=== PATIENT | male | born 1945 | race Caucasian/White ===

== ENCOUNTER 2016-07-31 10:09 | Inpatient (IN) | payer MEDICARE, OTHER ==
[2016-07-21 20:05] LABS: WBC (NOT ORDERED) (RFLEX) 0 (0-5)
[2016-07-21 20:15] LABS: BASOPHILS 0.3 %; BASOPHILS ABSOLUTE 0.02 10/3/uL (0.0-0.16); EOSINOPHILS ABSOLUTE 0.07 10/3/uL (0.0-0.53); HEMATOCRIT 43.5 % (40.0-51.0); HEMOGLOBIN 14.4 g/dL (13.6-17.8); IMMATURE GRANULOCYTES 0.3 %; IMMATURE GRANULOCYTES ABSOLUTE 0.02 10/3/uL (0.0-0.11); LYMPHOCYTES 22.2 %; LYMPHOCYTES ABSOLUTE 1.54 10/3/uL (0.67-4.30); MEAN CORPUS HGB CONC 33.1 g/dL (32.0-36.0); MEAN CORPUSCULAR HEMOGLOB 28.3 pg (26.0-34.0); MEAN CORPUSCULAR VOLUME 85.6 fL (80-100); MEAN PLATELET VOLUME 10.6 fL (9.2-13.0); MONOCYTES 7.9 %; MONOCYTES ABSOLUTE 0.55 10/3/uL (0.21-1.20); NEUTROPHILS 68.3 %; NEUTROPHILS ABSOLUTE 4.75 10/3/uL (2.02-8.40); PLATELET COUNT 186 10/3/uL (150-400); RBC DISTRIBUTION WIDTH 12.9 % (12.0-16.0); RED CELL COUNT 5.08 10/6/uL (4.7-6.1)
[2016-07-21 20:21] LABS: ASCORBIC ACID (UR NOT ORDER) NEG (NEG); BILIRUBIN, URINE NEGATIVE (NEG); KETONE, URINE TRACE MG/DL (NEG); LEUKOCYTE ESTERASE(NOT OR NEG (NEG)
[2016-07-21 20:25] LABS: MANUAL DIFF NO %
[2016-07-21 20:27] LABS: ALBUMIN 4.2 G/DL (3.5-5.0); ALKALINE PHOSPHATASE 102 U/L (45-117); BUN (BLOOD UREA NITROGEN) 17 MG/DL (6-23); CALCIUM, SERUM 8.9 MG/DL (8.5-10.4); CHLORIDE, SERUM 106 MMOL/L (96-112); CO2 (CARBON DIOXIDE) 30 MMOL/L (24-34); CREATININE 0.98 MG/DL (0.70-1.30); GFR AFRICAN AMERICAN 91 ML/MIN (>=60); GFR NON AFRICAN AMERICAN 78 ML/MIN (>=60); GLOBULIN 2.1 G/DL (2.5-4.1); GLUCOSE, SERUM 98 MG/DL (60-99); POTASSIUM, SERUM 4.5 MMOL/L (3.5-5.3); SGOT(AST) 28 U/L (5-40); SGPT(ALT) 32 U/L (5-65); SODIUM, SERUM 142 MMOL/L (135-148); TOTAL PROTEIN 6.3 G/DL (6.0-8.5)
--- NOTE | ~2016-07-31 | OP ---
Record Of Operation [facility] [address] [place]. [address] NAME: KEVIN ESQUEDA : 47 STATUS : ADM IN PAT#: [id number] AGE: 70 ADM/REG DATE : 07/31/16 MR#: [id number] REPORT SERV DATE: 07/31/16 DICTATED BY: AUSTIN FOURNIER JR. DATE: 07/31/16 REPORT STATUS : Draft TRANSCRIBED BY: MODAlexia DATE: 07/31/16 DATE OF PROCEDURE: ADDENDUM: ESTIMATED BLOOD LOSS: 600 mL. SPECIMENS: A partial nephrectomy. Margins clear. DRAINS: As above. INDICATION: Mr. Esqueda is a 70-year-old gentleman, who I have been following with a cystic renal mass on the right side. Over the past several months, it has increased in size significantly and also has become a Bosniak III cyst with an enhancing area in the central portion. It is a multiloculated cyst as well. 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 He had an NG tube for almost 60 days at a prior admission in [place], [place] and there was a great concern that he would have difficulties with this operation having a lot of adhesions. Based on his multiple prior operations, I felt that he would be at risk for enterotomies, however, he also had a large epigastric hernia that was bothering him and I had him consult with Dr. Dexter about repairing the hernia after the partial nephrectomy had been completed. We agreed that this was a fairly large procedure and adding a hernia operation may be too much and depending on the operative time and the way the patient was doing, it may not be the best idea, but that decision was to be made at the time of surgery. I also wanted to have Dr. Dexter on board in case the adhesions were too difficult or if there were some issues with enterotomies. He could help with closure on those. PROCEDURE IN DETAIL: After the patient was identified and proper informed consent was obtained, he was taken to the operating room. General anesthesia was performed without complication using an endotracheal tube. He also had an NG-tube placed. He was prepped and draped in a normal sterile fashion in the modified thoracoabdominal position. He had a previous subcostal incision, not a full one but approximately 4-inch long subcostal incision in the midline. This was directly overlying the rib on the bottom of the rib cage. This is not the best location for an incision, however, I did not want to make a second incision parallel to this only a few centimeters away so well I simply made my incision overlying this previous incision and then once down to the area of the fascia, I made sure that I incised the fascia approximately 2 cm from the lower edge of the costophrenic angle. I then started laterally and entered the retroperitoneum without difficulties and then tried to reflect the peritoneum off the anterior surface of the abdominal wall and enlarged my incision, however, this proved to be quite difficult as he had very thick and scarred down adhesions. This was quite difficult and even in areas where I resected abdominal wall, I was still making enterotomies as I dissected the small intestine off the anterior abdominal wall in the areas of his prior incision. These enterotomies were noted. I placed sutures in them to sue them. There were approximately five enterotomies and one short segment of bowel that was adherent to the previous subcostal incision and there were two small enterotomies in the area of the intestine that was mobilized from the umbilical area. It Record Of Operation [facility] [address] [facility] [place]. [address] NAME: KEVIN ESQUEDA : 46 STATUS : ADM IN PAT#: [id number] AGE: 70 ADM/REG DATE : 07/31/16 MR#: [id number] REPORT SERV DATE: 07/31/16 DICTATED BY: AUSTIN FOURNIER JR. DATE: 07/31/16 REPORT STATUS : Draft TRANSCRIBED BY: SIMI DATE: 07/31/16 was necessary to perform this adhesiolysis so that I could get the Omni retractor in and exposed the kidney appropriately. There was very thick adhesions along the lower border of the liver as well. This made it quite difficult to expose the hilum of the kidney. I was able to take down enough adhesions to get a retractor in under the lateral portion of the liver and exposed the lateral kidney in the location of his cystic mass. Once I had placed the Omni retractor and noted the areas of enterotomy, I then began mobilizing the lateral portion of the kidney and simply flipped it up over onto its anterior surface to expose the lateral border of the kidney and the cystic mass. Using ultrasound, I marked the borders of the cystic mass and then using compression of the hilum between my fingers intermittently, I resected the mass itself. Initially there was a small segment of the cystic mass that was left on the kidney, I sent the mass for frozen section and was found to be renal cell carcinoma. I therefore took a second margin removing the remaining cyst wall and some renal parenchyma along with it. This margin was negative. Once I had completely resected all the tumor, I then closed these defects of the kidney using a 3-0 Vicryl suture in a running fashion through the central portion of the defect to control the vast majority of the bleeding. I then used pledgeted 2-0 Vicryl sutures in the capsule of the kidney in a vertical fashion to close the kidney capsule and then used FloSeal and Surgicel and placed the kidney back into its natural position. Dr. Dexter, at that point, came into the room. I assisted him in resecting the small bowel that had the five enterotomies along the subcostal incision and reanastomosing that. Please see his dictation for details of those portions of the operation. He then also closed the small enterotomies in the area of the umbilicus. Once we were satisfied that all enterotomies had been closed or dealt with, I copiously irrigated the abdomen with sterile saline removing the saline with suction and then placing a 15-Khmer Con drain through a separate stab incision below my original incision. I then closed the wound using two layers of 0 looped PDS suture to reapproximate the muscle layers of the anterior abdominal wall. I then irrigated the wound copiously then closing the skin using a 3-0 Vicryl in the Bryce's fascia and a 4-0 Monocryl on the skin. An NG tube will be left for several days. Dr. Dexter will help me manage his bowel function over the next few days and will wait for the final pathology results on the cystic renal mass. ERIKA/MODL Austin Fournier Jr., M.D. / [id number] CC: Claire Rios Jr. M.D.
--- NOTE | ~2016-07-31 | OP ---
Record Of Operation [facility] [address] [place]. [address] NAME: KEVIN ESQUEDA : 47 STATUS : ADM IN PAT#: [id number] AGE: 70 ADM/REG DATE : 07/31/16 MR#: [id number] REPORT SERV DATE: 08/01/16 DICTATED BY: TREVOR ROBLERO III DATE: 08/01/16 REPORT STATUS : Draft TRANSCRIBED BY: MODL DATE: 08/01/16 DATE OF PROCEDURE: 07/31/2016 PREOPERATIVE DIAGNOSIS: Right renal mass with history of multiple abdominal operations in the past associated with enterocutaneous fistulas and incisional hernia and history of multiple small bowel obstructions in the past. POSTOPERATIVE DIAGNOSIS: Right renal mass with history of multiple abdominal operations in the past associated with enterocutaneous fistulas and incisional hernia and history of multiple small bowel obstructions in the past, severe intraabdominal adhesions associated with right renal neoplasm and previous multiple enterocutaneous fistulas requiring small bowel resection and repair of enterotomies. PROCEDURE: Small bowel resection with primary anastomosis and repair of enterotomies. SURGEON: Trevor Roblero M.D. ANESTHESIA: General with intubation. COMPLICATIONS: None. ESTIMATED BLOOD LOSS: 50 mL. SPECIMEN: Segment of small bowel. DRAINS: Mihai-Shine in abdominal cavity. LAP AND SPONGE COUNT: Correct x3 (I was the second surgeon in this procedure with Dr. Bolivar Fournier, who dictated separately the partial nephrectomy performed). BRIEF HISTORY: This 70-year-old male was recently diagnosed with a right renal cell mass. The patient has a history of two small bowel obstructions in the past requiring operations. He had a prolonged hospitalization at [facility] related to his previous surgery, including prolonged intensive care unit stay, multiple enterocutaneous fistulas, and many weeks in the hospital. 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 He had a midline incisional hernia related to the junction between his right subcostal incision and midline incision. We planned to repair this if necessary for entering the abdomen for the partial nephrectomy to be performed by Dr. Fournier. Nevertheless, it was realized that the patient had a hostile abdomen and the entrance into the abdominal cavity would be extremely difficult likely involving enterotomies and possible need for bowel resection. We planned to repair the hernia if this was indicated but primarily we were concerned about exposure of the right kidney for the necessary resection. Regarding the surgery, laparotomy with partial nephrectomy, possible repair of incisional hernia, repair of enterotomy or small bowel resection is indicated, the risks, benefits, alternatives including but not limited to the risk for bleeding, infection, enterotomy, injury to the abdominal structure, postop small bowel obstruction, ileus, incisional hernia, dehiscence, anastomotic leak requiring Record Of Operation [address] [address] NAME: KEVIN ESQUEDA : 47 STATUS : ADM IN [facility]#: [id number] AGE: 70 ADM/REG DATE : 07/31/16 MR#: [id number] REPORT SERV DATE: 08/01/16 DICTATED BY: TREVOR ROBLERO III DATE: 08/01/16 REPORT STATUS : Draft TRANSCRIBED BY: SIMI DATE: 08/01/16 reoperation or resulting in peritonitis, sepsis, and , and unforeseen complications including deep venous thrombosis, pulmonary embolus, myocardial infarction, stroke, pneumonia, and were fully and completely explained to the patient's family prior to surgery. The fact that this was a major operation with risk for major morbidity and mortality was explained. The expected length of recovery was explained. Based on his previous history of dense abdominal adhesions and bowel obstruction, the possibility of prolonged ileus or recurrent small bowel obstruction after this procedure was explained. The patient had questions, which were answered. He clearly understood the risks and agreed to surgery as planned. DESCRIPTION OF PROCEDURE: The patient was appropriately identified in the preoperative area, and the risks of surgery again discussed with the patient and his family. He was taken to the operating room and placed in supine position on the operating room table. General anesthesia was administered. He was intubated without difficulty. Dr. Fournier had dictated the initial portion of the procedure. On my entering the procedure, the patient was under general anesthesia and stable. He had a right subcostal incision. The patient had evidence for dense intraabdominal adhesions. There were six separate enterotomies identified, one in the right upper quadrant along a contiguous loop of small bowel. These were fairly large, adjacent to one another, and were too large to allow for primary closure. It was clear that the resection of the involved portion of small bowel would be required. The three other enterotomies were along the separate segment of small bowel, in the mid to the left lower quadrant of the abdomen. These were also contiguous with one another but was smaller and was felt that these could be repaired primarily. The abdominal cavity was carefully inspected. Hemostasis was assured. There was noted to be dense adhesions between multiple loops of small bowel including those involving the enterotomies. We then performed extensive lysis of adhesions in order to define the small bowel involving the enterotomies in the right upper quadrant. Meticulous dissection was done so as to define the small bowel proximally and distally. These three enterotomies were large, but were again involving contiguous segments of small bowel, perhaps 6-10 cm in length. Extensive lysis of adhesions was required in order to free up this loop of bowel to define it proximally and distally. Once this was done, we selected a point for division of small bowel proximal and distal to the enterotomies. The bowel was divided proximally and distally at these locations with the ANSHUL stapler. The mesentery to the involved portion of the small bowel was then divided between Patsy clamps, cutting and tying with 2-0 silk sutures. This segment of small bowel was removed and sent for permanent pathology. We then performed a [id number]-[id number] anastomosis between the divided proximal and distal small bowel. This was performed by aligning the antimesenteric border of the small bowel proximally and distally with interrupted 3-0 silk sutures. A small opening was then made in the antimesenteric border of the small bowel proximally and distally, and ANSHUL stapler was placed through this and fired. The defect created by the stapler was closed with a TA-60 Record Of Operation [address] [place]. [address] NAME: KEVIN ESQUEDA : 47 STATUS : ADM IN PAT#: [id number] AGE: 70 ADM/REG DATE : 07/31/16 MR#: [id number] REPORT SERV DATE: 08/01/16 DICTATED BY: TREVOR ROBLERO III DATE: 08/01/16 REPORT STATUS : Draft TRANSCRIBED BY: MODL DATE: 08/01/16 stapler. This staple line was oversewn with interrupted 3-0 silk sutures. The "crotch" anastomosis was secured with 3-0 silk sutures. Upon completion of this, the anastomosis was widely patent to palpation, it was not twisted or kinked in anyway and was not under any tension. The mesenteric defect was closed with a running 3-0 silk suture. We then carefully inspected the other three enterotomies in the left lower quadrant. Each of these was closed with interrupted 3-0 silk sutures. This resulted in good closure of each of these defects. Great care was taken to be certain that the lumen of the bowel was not encroached upon or compromised. There was another area of small-bowel serosal thinning. This was reinforced with interrupted 3-0 silk sutures. The entire abdominal cavity was irrigated copiously with saline, and hemostasis was assured. The small bowel was carefully inspected for any other enterotomies and none were identified. The patient had extremely dense adhesions which greatly extended the length of the procedure and the difficulty of the procedure. Hemostasis was assured. A Mihai-Shine drain was brought through a separate stab wound and placed in the abdominal cavity. The abdominal cavity was then closed and this has been dictated separately by Dr. Fournier. The patient tolerated the procedure well. His family was informed of the results of surgery. MANUEL/SIMI Trevor Roblero III, M.D. / [id number] CC: Claire Rios Jr., M.D.
--- NOTE | ~2016-07-31 | OP ---
Record Of Operation [facility] [address] [place] [address] NAME: KEVIN ESQUEDA : 47 STATUS : ADM IN PAT#: [id number] AGE: 70 ADM/REG DATE : 07/31/16 MR#: [id number] REPORT SERV DATE: 07/31/16 DICTATED BY: AUSTIN FOURNIER JR. DATE: 07/31/16 REPORT STATUS : Draft TRANSCRIBED BY: MODL DATE: 07/31/16 DATE OF PROCEDURE: 07/31/2016 PREOPERATIVE DIAGNOSES: Right renal mass and epigastric hernia. POSTOPERATIVE DIAGNOSES: Right renal mass and epigastric hernia. PROCEDURE PERFORMED: Open partial nephrectomy with extensive lysis of adhesions. COMPLICATIONS: Several enterotomies. DRAINS: 15-Armenian Con drain, 16-Armenian Neal catheter, NG tube. CONSULTANTS: Elpidio Dexter M.D. INDICATIONS: DICTATION ENDS HERE ERIKA/SIMI Austin Fournier Jr., M.D. / [id number] CC: Claire Rios Jr., M.D.
--- NOTE | ~2016-07-31 | DS ---
Discharge Summary [facility] [address] [place]. [address] NAME: KEVIN ESQUEDA : 47 STATUS : DIS IN PAT#: [id number] AGE: 70 ADM/REG DATE : 07/31/16 MR#: [id number] REPORT SERV DATE: 08/19/16 DICTATED BY: AUSTIN FOURNIER JR. DATE: 08/18/16 REPORT STATUS : Draft TRANSCRIBED BY: MODAlexia DATE: 08/18/16 Data Collection from hospitalization DISCHARGE DIAGNOSES: 1. Right renal mass and epigastric hernia. 2. Hypertension. 3. Hyperlipidemia. CONSULTATIONS: Junior Dexter M.D. PROCEDURES PERFORMED: 1. Open partial nephrectomy with extensive lysis of adhesions on 07/31/2016. 2. Small bowel resection with primary anastomosis and repair of enterotomies on 07/31/2016. PATHOLOGY: Right kidney partial nephrectomy - renal cell carcinoma with extensive cystic degeneration. See comment. Right kidney additional cyst wall - fragments of cystic portion of renal cell carcinoma, margins free. Small bowel resection - adhesions and perforations. MEDICATIONS: Xanax 0.25 mg twice a day as needed, aspirin 81 mg daily, Lipitor 40 mg every morning, Percocet 7.5/325 one tablet every four hours as needed, and Altace 10 mg every morning. CONDITION AT DISCHARGE: Stable. DISPOSITION: The patient was discharged home on a regular diet with activities as instructed. He would follow up with me two weeks following discharge. He would follow up with his primary care physician as needed. HOSPITAL COURSE: This is a 70-year-old man who followed for a cystic renal mass on the right side over the past several months prior to admission, it had increased in size significantly and also had become a Bosniak III cyst with an enhancing area in the central portion. It is a multiloculated cyst as well. 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 He had an NG tube for almost 60 days at a prior to admission in [place], [place] and there was great concern that he would have difficulties with this operation having a lot of adhesions. Based on his multiple prior operations, it was felt that he would be at risk for enterotomies; however, he also had a large epigastric hernia that was bothering him and we had him consult with Dr. Dexter about repairing the hernia after the partial nephrectomy had been completed. We agreed this was a fairly large procedure and adding a hernia operation may be too much, and depending on the operative time and the way the patient was doing, it may not be the best idea. The decision was to be made at the time of surgery. The patient was admitted to the hospital at this time for further evaluation and treatment. Upon admission, the patient was taken to the operating room where he underwent the above- mentioned procedures by myself and Dr. Junior Dexter. He tolerated these procedures well, and there were no complications. On postop day #1, his pain was controlled. NG tube remained in place. Creatinine level was 1.4. The patient remained Discharge Summary [address] [place]. [address] NAME: KEVIN ESQUEDA : 47 STATUS : DIS IN PAT#: [id number] AGE: 70 ADM/REG DATE : 07/31/16 MR#: [id number] REPORT SERV DATE: 08/19/16 DICTATED BY: AUSTIN FOURNIER JR. DATE: 08/18/16 REPORT STATUS : Draft TRANSCRIBED BY: SIMI DATE: 08/18/16 n.p.o. He was alert and comfortable. He had good pain control. On 08/02/2016, he said he felt much better. He had less pain. He remained afebrile. He remained n.p.o. with the NG tube in place. Electrolytes were okay. Creatinine was 1.12. He remained n.p.o. at this time. On 08/03/2016, he had no new complaints except for some nausea. He remained afebrile. The abdomen was soft. We encouraged him to increase his activity. He was going to be given oral blood pressure medications as his blood pressure was rising off his home medications. The epidural catheter was removed and the tip was intact. On 08/04/2016, he had some abdominal cramping. He was not passing gas or stool per rectum. NG tube output had decreased. Pathology results were reviewed. We encouraged him to ambulate. The following day, the NG tube was removed. He was started on clear liquids. He had no new complaints. He had no nausea or vomiting. He was progressing well. Neal catheter was discontinued. Discharge planning was performed. On 08/06/2016, he felt well. He was tolerating clear liquids. His abdomen was soft. His diet was advanced. IV fluids were discontinued. Discharge instructions were given. Due to his improved and stable condition, he was discharged home with the above-stated instructions. Information collected by: Ronda White I submit the above information as my discharge summary. RADHA/SIMI Austin Fournier Jr., M.D. / [id number] CC: Claire Rios Jr., M.D.
--- NOTE | ~2016-07-31 | PREOPHP ---
PreOp History and Physical [place] [id number] [facility] [place]. [address] NAME: KEVIN ESQUEDA : 47 STATUS : ADM IN PAT#: [id number] AGE: 70 ADM/REG DATE : 07/31/16 MR#: [id number] REPORT SERV DATE: 08/01/16 DICTATED BY: TREVOR ROBLERO III DATE: 07/05/16 REPORT STATUS : Draft TRANSCRIBED BY: MODAlexia DATE: 07/05/16 HISTORY OF PRESENT ILLNESS: This 70-year-old male comes to the operating room for repair of a complicated incisional hernia. The patient has a large incisional hernia of his mid abdomen. This is related to previous multiple abdominal operations, which the patient had elsewhere. This hernia has become larger with time and symptomatic in terms of local pain and discomfort. The patient comes now for open repair of this hernia. This will be done in conjunction with a partial nephrectomy to be performed per Dr. Austin Fournier. The patient's previous surgery involved prolonged hospitalization of two months with multiple enterocutaneous fistulas and wound complications. He has had multiple operations including surgery for bowel obstruction, colostomy, and colostomy closure. This would markedly increase the risk for complications with this procedure, including risk for enterotomy or bowel injury and risk for wound infection or enterocutaneous fistula. It will also make the procedure more difficult technically. These increased risks have been explained to the patient, he understands and wished to proceed with surgery as planned. PAST MEDICAL HISTORY: 1. Hypertension. 2. Hyperlipidemia. ALLERGIES: CODEINE, DEMEROL, AND DILAUDID. MEDICATIONS: Aspirin, ramipril, Xanax, and Lipitor. PAST SURGICAL HISTORY: Includes laparotomy for bowel obstruction, colostomy, and colostomy closure. FAMILY HISTORY: Positive for cancer and heart disease. SOCIAL HISTORY: No history of tobacco or alcohol use. REVIEW OF SYSTEMS: The patient complains of joint pain. His 14-point review of systems is otherwise unremarkable. PHYSICAL EXAMINATION: GENERAL: He is a male, in no acute distress. He is alert and oriented x3. VITAL SIGNS: Blood pressure 152/72, temperature 98.7, and pulse 55. HEENT: Unremarkable. Cranial nerves II through XII are normal. LUNGS: Clear. CARDIAC: Normal. ABDOMEN: Soft and nontender. The patient has a large incisional hernia in the mid upper abdomen. This is at the junction of the intersection between the right subcostal and midline incision. The fascial defect is some 5 cm in size. The hernia is reducible. EXTREMITIES: Normal. PreOp History and Physical [address] [place]. [address] NAME: KEVIN ESQUEDA : 47 STATUS : ADM IN [facility]#: [id number] AGE: 70 ADM/REG DATE : 07/31/16 MR#: [id number] REPORT SERV DATE: 08/01/16 DICTATED BY: TREVOR ROBLERO III DATE: 07/05/16 REPORT STATUS : Draft TRANSCRIBED BY: SIMI DATE: 07/05/16 ASSESSMENT: 1. A 70-year-old male with symptomatic incisional hernia. 2. History of multiple complicated abdominal operations as above. 3. History of right renal abnormality, rule out malignancy. 4. Hypertension. 5. Hyperlipidemia. PLAN: The patient comes to the operating room now for open repair of this incisional hernia. This procedure, the risks, benefits, and alternatives, including but not limited to the risk for bleeding, infection, enterotomy, injury to any abdominal structure, postop small bowel obstruction, ileus, recurrence of the hernia, seroma formation, hematoma formation, infection of mesh or enterocutaneous fistula requiring removal of the mesh, and unforeseen complications including deep venous thrombosis, pulmonary embolus, myocardial infarction, stroke, pneumonia, and , have been fully and completely explained to the patient and family at length prior to surgery. The fact that this is a major operation with risk for major morbidity and mortality has been explained. The fact that he would be increased risk for complications including enterotomy or enterocutaneous fistula and wound complications due to his previous abdominal operations, which were prolonged complicated postoperatively has been explained. The patient's questions have been answered. He understands the risks and agrees to surgery as planned. MANUEL/SIMI Trevor Roblero III, M.D. / [id number]
[~2016-07-31 10:09] MED LIST: ALTACE10 MG PO; ASAB PO; LIPITOR40 PO; X25 PO
[2016-07-31 19:43] LABS: BASOPHILS 0.1 %; BASOPHILS ABSOLUTE 0.01 10/3/uL (0.0-0.16); EOSINOPHILS 0 %; HEMOGLOBIN 11.9 g/dL (13.6-17.8); IMMATURE GRANULOCYTES 0.3 %; IMMATURE GRANULOCYTES ABSOLUTE 0.03 10/3/uL (0.0-0.11); LYMPHOCYTES 4.8 %; LYMPHOCYTES ABSOLUTE 0.54 10/3/uL (0.67-4.30); MEAN CORPUS HGB CONC 34.4 g/dL (32.0-36.0); MEAN CORPUSCULAR HEMOGLOB 29.3 pg (26.0-34.0); MEAN CORPUSCULAR VOLUME 85.2 fL (80-100); MEAN PLATELET VOLUME 9.7 fL (9.2-13.0); MONOCYTES 2.3 %; MONOCYTES ABSOLUTE 0.26 10/3/uL (0.21-1.20); NEUTROPHILS 92.5 %; NEUTROPHILS ABSOLUTE 10.37 10/3/uL (2.02-8.40); PLATELET COUNT 144 10/3/uL (150-400); RBC DISTRIBUTION WIDTH 13.1 % (12.0-16.0)
[2016-07-31 19:45] LABS: HEMATOCRIT 34.6 % (40.0-51.0); MANUAL DIFF NO %; RED CELL COUNT 4.06 10/6/uL (4.7-6.1); WHITE BLOOD CELLS 11.2 10/3/uL (4.5-10.5)
[2016-07-31 19:55] LABS: BUN (BLOOD UREA NITROGEN) 16 MG/DL (6-23); CHLORIDE, SERUM 107 MMOL/L (96-112); POTASSIUM, SERUM 3.8 MMOL/L (3.5-5.3); SODIUM, SERUM 142 MMOL/L (135-148)
[2016-07-31 19:56] LABS: CALCIUM, SERUM 7.9 MG/DL (8.5-10.4); CO2 (CARBON DIOXIDE) 24 MMOL/L (24-34); CREATININE 1.74 MG/DL (0.70-1.30); GFR AFRICAN AMERICAN 45 ML/MIN (>=60); GFR NON AFRICAN AMERICAN 39 ML/MIN (>=60); GLUCOSE, SERUM 144 MG/DL (60-99)
[2016-08-01 04:44] LABS: BUN (BLOOD UREA NITROGEN) 19 MG/DL (6-23); CALCIUM, SERUM 7.8 MG/DL (8.5-10.4); CHLORIDE, SERUM 108 MMOL/L (96-112); CREATININE 1.37 MG/DL (0.70-1.30); GFR AFRICAN AMERICAN 61 ML/MIN (>=60); GFR NON AFRICAN AMERICAN 52 ML/MIN (>=60); SODIUM, SERUM 135 MMOL/L (135-148)
[2016-08-01 04:45] LABS: CO2 (CARBON DIOXIDE) 19 MMOL/L (24-34); GLUCOSE, SERUM 234 MG/DL (60-99); POTASSIUM, SERUM 4.6 MMOL/L (3.5-5.3)
[2016-08-01 08:40] LABS: BASOPHILS 0.1 %; BASOPHILS ABSOLUTE 0.01 10/3/uL (0.0-0.16); EOSINOPHILS 0 %; HEMOGLOBIN 12.8 g/dL (13.6-17.8); IMMATURE GRANULOCYTES 0.3 %; IMMATURE GRANULOCYTES ABSOLUTE 0.06 10/3/uL (0.0-0.11); LYMPHOCYTES 3.3 %; LYMPHOCYTES ABSOLUTE 0.63 10/3/uL (0.67-4.30); MEAN CORPUS HGB CONC 33.7 g/dL (32.0-36.0); MEAN CORPUSCULAR HEMOGLOB 28.7 pg (26.0-34.0); MEAN CORPUSCULAR VOLUME 85.2 fL (80-100); MEAN PLATELET VOLUME 10.3 fL (9.2-13.0); MONOCYTES 8.3 %; MONOCYTES ABSOLUTE 1.59 10/3/uL (0.21-1.20); NEUTROPHILS ABSOLUTE 16.77 10/3/uL (2.02-8.40); PLATELET COUNT 172 10/3/uL (150-400); RBC DISTRIBUTION WIDTH 13.2 % (12.0-16.0); RED CELL COUNT 4.46 10/6/uL (4.7-6.1)
[2016-08-01 08:41] LABS: MANUAL DIFF NO %; WHITE BLOOD CELLS 19.1 10/3/uL (4.5-10.5)
[2016-08-01 09:00] LABS: PLATELET ESTIMATE ADQ (ADEQUATE); RBC MORPHOLOGY NORM (NORMAL)
[2016-08-02 05:54] LABS: BASOPHILS 0.1 %; BASOPHILS ABSOLUTE 0.01 10/3/uL (0.0-0.16); EOSINOPHILS 0 %; HEMOGLOBIN 12.5 g/dL (13.6-17.8); IMMATURE GRANULOCYTES 0.2 %; IMMATURE GRANULOCYTES ABSOLUTE 0.04 10/3/uL (0.0-0.11); LYMPHOCYTES 6.1 %; MANUAL DIFF NO %; MEAN CORPUS HGB CONC 33.8 g/dL (32.0-36.0); MEAN CORPUSCULAR HEMOGLOB 29.4 pg (26.0-34.0); MEAN CORPUSCULAR VOLUME 87.1 fL (80-100); MONOCYTES 8.5 %; MONOCYTES ABSOLUTE 1.41 10/3/uL (0.21-1.20); NEUTROPHILS 85.1 %; NEUTROPHILS ABSOLUTE 14.04 10/3/uL (2.02-8.40); PLATELET COUNT 172 10/3/uL (150-400); RBC DISTRIBUTION WIDTH 13.2 % (12.0-16.0); RED CELL COUNT 4.25 10/6/uL (4.7-6.1); WHITE BLOOD CELLS 16.5 10/3/uL (4.5-10.5)
[2016-08-02 06:07] LABS: CALCIUM, SERUM 8.7 MG/DL (8.5-10.4); CHLORIDE, SERUM 102 MMOL/L (96-112); CREATININE 1.12 MG/DL (0.70-1.30); GFR AFRICAN AMERICAN 77 ML/MIN (>=60); GFR NON AFRICAN AMERICAN 67 ML/MIN (>=60); POTASSIUM, SERUM 4.3 MMOL/L (3.5-5.3); SODIUM, SERUM 135 MMOL/L (135-148)
[2016-08-02 06:09] LABS: BUN (BLOOD UREA NITROGEN) 14 MG/DL (6-23); CO2 (CARBON DIOXIDE) 26 MMOL/L (24-34); GLUCOSE, SERUM 154 MG/DL (60-99)
[2016-08-03 06:43] LABS: BASOPHILS 0 %; EOSINOPHILS 0.1 %; EOSINOPHILS ABSOLUTE 0.01 10/3/uL (0.0-0.53); HEMATOCRIT 34.7 % (40.0-51.0); HEMOGLOBIN 11.7 g/dL (13.6-17.8); IMMATURE GRANULOCYTES 0.3 %; IMMATURE GRANULOCYTES ABSOLUTE 0.04 10/3/uL (0.0-0.11); LYMPHOCYTES 4.9 %; LYMPHOCYTES ABSOLUTE 0.59 10/3/uL (0.67-4.30); MEAN CORPUS HGB CONC 33.7 g/dL (32.0-36.0); MEAN CORPUSCULAR HEMOGLOB 29.1 pg (26.0-34.0); MEAN CORPUSCULAR VOLUME 86.3 fL (80-100); MEAN PLATELET VOLUME 9.7 fL (9.2-13.0); MONOCYTES 9.9 %; MONOCYTES ABSOLUTE 1.19 10/3/uL (0.21-1.20); NEUTROPHILS 84.8 %; NEUTROPHILS ABSOLUTE 10.25 10/3/uL (2.02-8.40); PLATELET COUNT 147 10/3/uL (150-400); RED CELL COUNT 4.02 10/6/uL (4.7-6.1); WHITE BLOOD CELLS 12.1 10/3/uL (4.5-10.5)
[2016-08-03 06:44] LABS: MANUAL DIFF NO %
[2016-08-03 07:03] LABS: BUN (BLOOD UREA NITROGEN) 11 MG/DL (6-23); CALCIUM, SERUM 8.5 MG/DL (8.5-10.4); CHLORIDE, SERUM 101 MMOL/L (96-112); CREATININE 0.99 MG/DL (0.70-1.30); GFR AFRICAN AMERICAN 90 ML/MIN (>=60); GFR NON AFRICAN AMERICAN 77 ML/MIN (>=60); GLUCOSE, SERUM 161 MG/DL (60-99); POTASSIUM, SERUM 4.2 MMOL/L (3.5-5.3); SODIUM, SERUM 136 MMOL/L (135-148)
[2016-08-03 07:04] LABS: CO2 (CARBON DIOXIDE) 31 MMOL/L (24-34)
[2016-08-05 06:37] LABS: BASOPHILS 0.1 %; BASOPHILS ABSOLUTE 0.01 10/3/uL (0.0-0.16); EOSINOPHILS ABSOLUTE 0.07 10/3/uL (0.0-0.53); HEMATOCRIT 31.5 % (40.0-51.0); HEMOGLOBIN 10.8 g/dL (13.6-17.8); IMMATURE GRANULOCYTES 0.3 %; IMMATURE GRANULOCYTES ABSOLUTE 0.02 10/3/uL (0.0-0.11); LYMPHOCYTES 10.3 %; LYMPHOCYTES ABSOLUTE 0.69 10/3/uL (0.67-4.30); MEAN CORPUS HGB CONC 34.3 g/dL (32.0-36.0); MEAN CORPUSCULAR HEMOGLOB 28.9 pg (26.0-34.0); MEAN CORPUSCULAR VOLUME 84.2 fL (80-100); MEAN PLATELET VOLUME 9.7 fL (9.2-13.0); MONOCYTES 10.7 %; MONOCYTES ABSOLUTE 0.72 10/3/uL (0.21-1.20); NEUTROPHILS 77.6 %; NEUTROPHILS ABSOLUTE 5.19 10/3/uL (2.02-8.40); PLATELET COUNT 165 10/3/uL (150-400); RBC DISTRIBUTION WIDTH 12.9 % (12.0-16.0); RED CELL COUNT 3.74 10/6/uL (4.7-6.1)
[2016-08-05 06:44] LABS: MANUAL DIFF NO %; WHITE BLOOD CELLS 6.7 10/3/uL (4.5-10.5)
[2016-08-05 06:47] LABS: BUN (BLOOD UREA NITROGEN) 12 MG/DL (6-23); CALCIUM, SERUM 8.1 MG/DL (8.5-10.4); CHLORIDE, SERUM 106 MMOL/L (96-112); CO2 (CARBON DIOXIDE) 23 MMOL/L (24-34); CREATININE 0.77 MG/DL (0.70-1.30); GFR AFRICAN AMERICAN 107 ML/MIN (>=60); GFR NON AFRICAN AMERICAN 93 ML/MIN (>=60); GLUCOSE, SERUM 145 MG/DL (60-99); POTASSIUM, SERUM 4.4 MMOL/L (3.5-5.3); SODIUM, SERUM 138 MMOL/L (135-148)
[2016-08-06] MEDS ORDERED: PERCOCET 7.5/321 TAB PO (09:57)
== END 2016-08-06 12:53 | disposition home or self-care (01) | DRG 657 ==
LOC: SDC/OF 10:09 → PACU 19:06 → MIC 20:25 → 4SO 08-01 15:00
PROVIDERS: Surgery; Urology
PROC: 0DT80ZZ Resection of Small Intestine, Open Approach (ICD-10-PCS; principal; 2016-07-31 13:00)
PROC: 0DQ80ZZ Repair Small Intestine, Open Approach (ICD-10-PCS; 2016-07-31 13:00)
PROC: 0TB00ZZ Excision of Right Kidney, Open Approach (ICD-10-PCS; 2016-07-31 13:00)
DX: C64.1 Malignant neoplasm of right kidney, except renal pelvis (principal); K91.72 Accidental puncture and laceration of a digestive system organ or structure during other procedure; N28.1 Cyst of kidney, acquired; I10 Essential (primary) hypertension; K43.2 Incisional hernia without obstruction or gangrene; E78.5 Hyperlipidemia, unspecified; Z88.5 Allergy status to narcotic agent; Z79.82 Long term (current) use of aspirin; Z79.899 Other long term (current) drug therapy; Z90.49 Acquired absence of other specified parts of digestive tract; Z80.8 Family history of malignant neoplasm of other organs or systems; Z82.49 Family history of ischemic heart disease and other diseases of the circulatory system
CPT/HCPCS: 36415; 71020-PO; 74000; 76998; 80048; 80053; 81001; 83735; 85025; 86850; 86900; 86901; 87641; 88305; 88307; 88331; 88332; 93005; A9270-GY; J0690; J0694; J2150; J2250; J2270; J2370; J2405; J2710; J3010; J3370; P9045